=== PATIENT | male | born 1950 | race Caucasian/White ===

== ENCOUNTER 2018-03-05 13:00 | Outpatient (RCR) ==
--- NOTE | 2018-02-11 10:59 | RS.OPPTEV2 ---
Date of Note: 02/10/18 Visit #: 1 Date of Evaluation: 02/10/18 Payer Source: MEDICARE () Treatment Diagnosis: Ataxia History of Condition/Mechanism of Injury:: Patient reports progressive difficulty with balance and ambulation. Current Subjective/complaints:: Mr. Patiño states his balance has gotten progressivley gotten worse, more recently in the last year. States he has been using a cane for 30 years. He also has a rolling walker at home, but usually uses the cane. He reports occasional dizziness. States "yes" when asked if he has fallen in the past year, but does not give specifics. Paperwork from the [place] documents reports of daily falls. States legs are getting weak. He has stairs at the front entrance of his home and states he has some difficulty with them. States he goes without an assistive device at home, but usually has to hold onto furniture. States he uses oxygen at night. Medical History Medical History: Hypertension, COPD, Arthritis, Emphysema Medical History Comments:: PTSD, low back pain, chronic neuropathy Surgical History Comments:: Coronary angioplasty Smoking Status: Former smoker Hx Home Medications: albuterol,aspirin,diclofenac,Gabapentin,Meloxicam, mirtazapine,olodaterol,omeprazole,promethazine Patient's Goals: His goal is to improve his balance and decrease his falls. Pain Assessment - Pain Description Pain Location: back and neck Current Pain Intensity: 5/10 Worst Pain Intensity: 11/10 Functional Outcome Measure Tinetti: 54 (13/28=54% impairment (13 is High fall risk)) Other: 5 X sit to stand Test: patient performs in 14.97 seconds. Norms for his age bracket would be 11.4 secs. This shows him at risk for falls and decreased functional ability for his age. - G Codes & Severity Modifier G Codes & Modifier: Mobility current CK. Mobility goal CI Source of G Code score: Tinetti Assessment Observation - Observation Posture: Forward Head, Rounded Shoulders, Decreased Lumbar Lordosis Gait - Gait Pattern Gait Comments: Patient ambulates with a straight cane in the right hand. He demonstrates an ataxic gait, with moderate deviation from a straight path. Bilateral LE's demonstrate minimal foot clearance during swing phase. He reports dizziness when changing direction. Sit to stand transfers are independent. General Range of Motion: Bilateral LE AROM is WFL's. Muscle Strength: Left hip flexion 4+/5, ext, abduction, IR, and ER 4/5. Right hip flexion, abduction, ER, and IR 4/5, all else 4+/5. Left knee 4+/5. Right knee 4 to 4+/5. Left ankle 4/5, right ankle 4+/5. Trunk strength 3+/5. Sensation - Sensation Comments: Patient reports less sensitivity to light touch along the left lateral lower leg. Reports tingling in his feet, and barely detects light touch. Can distinguish deep pressure well along both feet. Can barely detect tap on sole of either foot. Balance - Sitting Balance Static Sitting Balance: Good Dynamic Sitting Balance: Good (-) - Standing Balance Static Standing Balance: Fair (-) Dynamic Standing Balance: Fair (-) - Comments Balance Assessment Comments: Patient on [employer] strainer cleaner for assessment. In static standing, patient demonstrates weight posteriorly displaced and more to his right LE. He is able to correct and center his weight with verbal and tactile cues. He had difficulty hitting anterior targets in Limits of Stability assessment. He requires verbal and tactile cues for this as well. Coordination - Tests Bilateral Heel to Vargas: Mild Deviation Toe Tapping: Mild Deviation Additional Comments: Additional Comments: Blood pressure assessed prior to activity: in sitting 113/ 64. Supine 135/42, then back to sitting 113/64. After immediate standing, blood pressure barely changed, but after 1 minute BP 89/55. Patient reported dizziness and lightheadedness. Patient given time to rest. Following activity, patient's BP 97/59 and pulse ox 89%. Patient shows no shortness of breath or labored breathing with activity. Interventions - Exercise/Activities/Manual Therapy Exercises/Activities: NA Manual Therapy: NA - Charges Timed Code Treatment Minutes: NA Total Treatment Time: NA Procedures billed for this date of service:: EVAL Medium EVALUATION COMPLEXITY LEVEL EVALUATION COMPLEXITY LEVEL: HISTORY: Medium (chronic neuropathy,HTN, PTSD, progressive weakness), EXAM OF BODY SYSTEMS: Medium, CLINICAL PRESENTATION: Medium, CLINICAL DECISION MAKING: Medium Assessment Assessment: Mr. Patiño presents to therapy with a diagnosis of ataxia, with frequent falls. He exhibits an ataxic gait and presents to be at a high risk for falls. He displays impaired static and dynamic standing balance, and mild coordination deficits. Also exhibits weakness in the trunk and LE's. He has had frequent falls and is at risk for continue falls without skilled therapy intervention to improve his strength, balance, and coordination. Patient Education: Education of diagnosis, Home Safety, Education of Plan of Care Rehab Potential: Good Short Term Goals Goal #1: Pt independent and compliant with HEP. Goal to be met by: 02/25/18 Goal #2: Trunk strength improved to 4/5. Goal to be met by: 02/25/18 Goal #3: Bilateral hip strength 4+/5. Goal to be met by: 02/25/18 Halfway Goals Goal #1: Pt knows HEP and to continue ex's to maintain functional level at D/C. Goal to be met by: 03/28/18 Goal #2: Score on Tinetti Assessment improved to 23/38 to shows less risk for falls. Goal to be met by: 03/28/18 Goal #3: Pt to amb. with AAD, independently with good safety, community distances. Goal to be met by: 03/28/18 Goal #4: Pt to report no falls. Goal to be met by: 03/28/18 Plan - Treatment to be Provided Procedures: Therapeutic Exercises, Therapeutic Activity, Gait Training, Neuromuscular Rehab, Patient Education Modalities: No Modalities - Treatment Plan Frequency: 2 X week Duration: 6 weeks ORDER # VISITS AND/OR THROUGH DATE: 03/28/18 - Treatment Code (1) Ataxia Code(s): R27.0 - ATAXIA, UNSPECIFIED Comments: R27.0 (2) Generalized muscle weakness Code(s): M62.81 - MUSCLE WEAKNESS (GENERALIZED) Comments: M62.81 (3) Recurrent falls Code(s): R29.6 - REPEATED FALLS Comments: R29.6 (4) Impaired functional mobility, balance, gait, and endurance Code(s): Z74.09 - OTHER REDUCED MOBILITY Comments: Z74.09
--- NOTE | 2018-02-11 11:26 | RS.OPPTDN ---
Subjective Date of Note: 02/11/18 Visit #: 2 Date of Evaluation: 02/10/18 Payer Source: MEDICARE () Treatment Diagnosis: Ataxia Current Subjective/complaints:: Reports having some dizziness this morning when he first go up. Interventions - Exercise/Activities/Manual Therapy Exercises/Activities: Prior to exercise, while sitting, BP 118/74. Patient performs on leg press with 75 #'s, 2 sets of 10 reps, then 60# for ankles. Performs seated LAQ's and hip flexion with 3#'s on each leg. In supine, performs SLR, circles with entire LE (with assistance), rhythmic stabilization, resisted hip adduction with red theraband, bridging, hooklying hip flexion with 3# weight, isometric hip abduction, and resistive ankle ROM into DF, inversion, and eversion with red theraband. Patient demonstrates more coordination on the right LE with exercises. Performs standing mini knee bends and lateral weight shifting on foam pad with chair close by for balance if needed. Following exercises, Bp 97/60. Total minutes of Exercise: 39 mins Manual Therapy: NA - Charges Timed Code Treatment Minutes: 39 mins Total Treatment Time: 45 mins Procedures billed for this date of service:: Ex 2, Neuro Assessment: Mr. Patiño is very pleasant and cooperative with all activities. Patient Education: Home Exercise Program, Home Safety, Activity Modification Short Term Goals Goal #1: Pt independent and compliant with HEP. Goal to be met by: 02/25/18 Goal #2: Trunk strength improved to 4/5. Goal to be met by: 02/25/18 Goal #3: Bilateral hip strength 4+/5. Goal to be met by: 02/25/18 Residential Goals Goal #1: Pt knows HEP and to continue ex's to maintain functional level at D/C. Goal to be met by: 03/28/18 Goal #2: Score on Tinetti Assessment improved to 23/38 to shows less risk for falls. Goal to be met by: 03/28/18 Goal #3: Pt to amb. with AAD, independently with good safety, community distances. Goal to be met by: 03/28/18 Goal #4: Pt to report no falls. Goal to be met by: 03/28/18 Plan PLAN OF CARE EXPIRES ON:: 03/28/18 ORDER # VISITS AND/OR THROUGH DATE: 03/28/18 PLAN: Progress balance and strengthening exercises.
--- NOTE | 2018-02-16 13:20 | RS.OPPTDN ---
Subjective Date of Note: 02/16/18 Visit #: 3 Date of Evaluation: 02/10/18 Payer Source: MEDICARE () Treatment Diagnosis: Ataxia Current Subjective/complaints:: Patient reports getting off balance when walking with distractions. Balance System Training - Level 1 Postural Stability/Symmetry #1 Training Mode: Weight Shift Training Vision: Eyes Open Task: None Platform Stability Level (1-12): static Stance: Normal Reps: 10 reps laterally, ant/post, and diagonally - Level 2 Dynamic Weight Shifting #1 Skill Level (1-3): 1 Platform Stability Level (1-12): static Reps: once Interventions - Exercise/Activities/Manual Therapy Exercises/Activities: After performing on leg press, while sitting, BP 135/77. Patient performs on leg press with 75 #'s, 2 sets of 10 reps, then 60# for ankles. Performs seated LAQ's and hip flexion with 3#'s on each leg. In supine , performs SLR, circles with entire LE (with assistance), rhythmic stabilization , resisted hip adduction with red theraband, bridging, hooklying hip flexion with 3# weight, isometric hip abduction, and resistive ankle ROM into DF, inversion, and eversion with red theraband. BP taken prior to standin/ 77. Immediate standin/68, then after another minute 130/13. . Performs standing mini knee bends and lateral weight shifting on foam pad with chair close by for balance if needed. Patient needed to sit due to being dizzy, BP 103/78. Total minutes of Exercise: 43 mins Manual Therapy: NA - Charges Timed Code Treatment Minutes: 43 mins Total Treatment Time: 49 mins Procedures billed for this date of service:: EX2, Neuro Assessment: Patient tolerates exercises well, other than dizziness with standing activities. He shows a significant drop in his BP of 22 points systolic upon immediate standing today. Educated patient to wait a little longer when standing, before he takes off walking. Patient Education: Education of diagnosis, Body/Joint mechanics, Home Safety, Education of Plan of Care Short Term Goals Goal #1: Pt independent and compliant with HEP. Goal to be met by: 02/25/18 Goal #2: Trunk strength improved to 4/5. Goal to be met by: 02/25/18 Goal #3: Bilateral hip strength 4+/5. Goal to be met by: 02/25/18 Alf Goals Goal #1: Pt knows HEP and to continue ex's to maintain functional level at D/C. Goal to be met by: 03/28/18 Goal #2: Score on Tinetti Assessment improved to 23/38 to shows less risk for falls. Goal to be met by: 03/28/18 Goal #3: Pt to amb. with AAD, independently with good safety, community distances. Goal to be met by: 03/28/18 Goal #4: Pt to report no falls. Goal to be met by: 03/28/18 Plan PLAN OF CARE EXPIRES ON:: 03/28/18 ORDER # VISITS AND/OR THROUGH DATE: 03/28/18 PLAN: Progress exercises as tolerated to gain increased strength and balance.
--- NOTE | 2018-02-19 11:55 | RS.OPPTDN ---
Subjective Date of Note: 02/19/18 Date of Evaluation: 02/10/18 Payer Source: MEDICARE () Treatment Diagnosis: Ataxia Current Subjective/complaints:: Mr. Patiño states he feels Ok today. States he "over did it" yesterday. Balance System Training - Level 1 Postural Stability/Symmetry #1 Training Mode: Postural Stability Training Vision: Eyes Open Platform Stability Level (1-12): static Stance: Normal Reps: anteriorly to hit targets X 4 reps - Level 2 Dynamic Weight Shifting #1 Training Mode: Weight Shift Skill Level (1-3): 1 Platform Stability Level (1-12): static Reps: 10 reps each laterally and ant/posterior Interventions - Exercise/Activities/Manual Therapy Exercises/Activities: BP 118/64. Patient performs on leg press with 75 #'s, 2 sets of 10 reps, then 60# for ankles. Performs seated LAQ's and hip flexion with 3#'s on each leg. In supine, performs SLR, circles with entire LE (with assistance), rhythmic stabilization, resisted hip adduction with red theraband, bridging, hooklying hip flexion with 3# weight, isometric hip abduction, and resistive ankle ROM into DF, inversion, and eversion with red theraband. BP taken prior to standin/59. Immediate standin/54, after one minute 85 /52. Patient instructed to sit down to rest. BP came up to 109/61. Total minutes of Exercise: 41 Manual Therapy: NA - Objective Findings Observations,measurements,etc.: Patient ambulates into the department with a straight cane. He demonstrates an ataxic gait. - Charges Timed Code Treatment Minutes: 41 mins Total Treatment Time: 48 mins Procedures billed for this date of service:: EX2, neuro Assessment: Mr. Patiño demonstrates consistent BP drop with immediate standing or after standing one minute. Discussed with him the affect this has on his feeling of dizziness, being light headed, or off balance. He demonstrates the need for strengthening to improve his balance reactions to help him avoid falls. Patient Education: Education of diagnosis, Body/Joint mechanics, Home Exercise Program, Home Safety, Activity Modification, Education of Plan of Care Short Term Goals Goal #1: Pt independent and compliant with HEP. Goal to be met by: 02/25/18 Progress towards Goal:: Progressing Goal #2: Trunk strength improved to 4/5. Goal to be met by: 02/25/18 Progress towards Goal:: Progressing Goal #3: Bilateral hip strength 4+/5. Goal to be met by: 02/25/18 Progress towards Goal:: Progressing Long-Term Goals Goal #1: Pt knows HEP and to continue ex's to maintain functional level at D/C. Goal to be met by: 03/28/18 Goal #2: Score on Tinetti Assessment improved to 23/38 to shows less risk for falls. Goal to be met by: 03/28/18 Goal #3: Pt to amb. with AAD, independently with good safety, community distances. Goal to be met by: 03/28/18 Goal #4: Pt to report no falls. Goal to be met by: 03/28/18 Plan PLAN OF CARE EXPIRES ON:: 03/28/18 ORDER # VISITS AND/OR THROUGH DATE: 03/28/18 PLAN: Progress strengthening and balance exercise to reduce his risk for falls.
--- NOTE | 2018-02-23 13:28 | RS.OPPTDN ---
Subjective Date of Note: 02/23/18 Visit #: 5 Date of Evaluation: 02/10/18 Payer Source: MEDICARE () Treatment Diagnosis: Ataxia Current Subjective/complaints:: Mr. Patiño states he has had a lot of dizziness this morning. Reports dizziness and lightheadedness today in department while sitting and standing. States he has not fallen lately, just is unsteady on his feet and runs into elise and other objects. Interventions - Exercise/Activities/Manual Therapy Exercises/Activities: BP taken in sitting, after patient walked back into department: 95/52. Taken again after a few minutes: 105/59. Patient performed LE strengthening while sitting of LAQ's and hip flexion with 4#'s on each leg. BP following these exercises while still sittin/56. Patient assisted with exercises in supine: performed SAQ's and alternating hip flexion in hooklying with 4# weights, resisted hip abduction and adduction with red theraband, isometric rhythmic stabilization, bridging, 3# wand for bilateral shoulder flexion. After sitting up, BP 88/48 and O2 sat. 87%. Patient given time to rest and vitals taken again after approixmately 5 minutes: BP 91/54 and O2 94%. No standing/walking exercises performed due to BP being low and Mr. Patiño reportiing dizziness. Blood pressure last measured 105/59 before Mr. Patiño left the department. Reinforced the need for him to take his time and not change positions quickly. Total minutes of Exercise: 32 mins Manual Therapy: NA - Objective Findings Observations,measurements,etc.: Trunk strength 4/5. - Charges Timed Code Treatment Minutes: 32 mins Total Treatment Time: 50 mins Procedures billed for this date of service:: EX2 Assessment: Mr. Patiño presents today with reports of dizziness this morning and low blood pressure. He has consistently shown Orthostatic Hypotension in the department and today maintains low blood pressure in sitting. No standing activities were pursued today for patient safety. Patient Education: Education of diagnosis, Home Safety, Activity Modification Short Term Goals Goal #1: Pt independent and compliant with HEP. Goal to be met by: 02/25/18 Progress towards Goal:: Progressing Goal #2: Trunk strength improved to 4/5. Goal to be met by: 02/25/18 Progress towards Goal:: Met Goal #3: Bilateral hip strength 4+/5. Goal to be met by: 02/25/18 Progress towards Goal:: Progressing [facility] Goals Goal #1: Pt knows HEP and to continue ex's to maintain functional level at D/C. Goal to be met by: 03/28/18 Goal #2: Score on Tinetti Assessment improved to 23/38 to shows less risk for falls. Goal to be met by: 03/28/18 Goal #3: Pt to amb. with AAD, independently with good safety, community distances. Goal to be met by: 03/28/18 Goal #4: Pt to report no falls. Goal to be met by: 03/28/18 Plan PLAN OF CARE EXPIRES ON:: 03/28/18 ORDER # VISITS AND/OR THROUGH DATE: 03/28/18 PLAN: Plan to contact Dr. Cerrato's office regarding Mr. Patiño's low blood pressure.
--- NOTE | 2018-02-26 14:00 | RS.OPPTDN ---
Subjective Date of Note: 02/26/18 Visit #: 6 Date of Evaluation: 02/10/18 Payer Source: MEDICARE () Treatment Diagnosis: Ataxia Current Subjective/complaints:: Mr. Patiño states he had a bad fall yesterday. States he stood up and fell straight back. States it was the worst fall he has had in a while. States he was ok after the fall and feels OK today. Reports he did not take his medications this morning, due to having a lot going on. Mr. Patiño states [facility]reg[facility] my phone call to them about his blood pressure. He goes for a doctor's appointment on Friday the . Reports dizziness with activities today, especially when standing or walking. Balance System Training - Level 1 Postural Stability/Symmetry #1 Training Mode: Weight Shift Training Vision: Eyes Open Task: None Platform Stability Level (1-12): static Stance: Normal - Level 2 Dynamic Weight Shifting #1 Training Mode: Limits of Stability Skill Level (1-3): 1 Platform Stability Level (1-12): static Time: 1 min, 43 seconds Reps: once Interventions - Exercise/Activities/Manual Therapy Exercises/Activities: Patient walked back to the department on worked on leg press with 60#s . BP following this was 140/76. Patient performed LE strengthening while sitting of LAQ's and hip flexion with 4#'s on each leg. Performed resisted ankle DF, inversion, and eversion with green theraband. BP following these exercises while still sittin/83. Upon standing, BP drops to 112/68. Patient performed standing exercises on foam pad of lateral weight shifting and mini squats. Pt sat to rest and BP 153/84. After resting ~ 5 mins BP 142/83. Upon standing again, BP 127/82. Patient reported dizziness throughout session. Manual Therapy: NA HOME EXERCISE PROGRAM: sitting hip flexion and LAQ's. - Objective Findings Observations,measurements,etc.: Mr. Patiño ambulates with a Handy cane (folds out with seat) independently with an ataxic gait. Deviates moderately from a straight path. Bilateral LE demonstrates decreased hip and knee flexion. - Charges Timed Code Treatment Minutes: 41 mins Total Treatment Time: 51 mins Procedures billed for this date of service:: Ex2, Neuro Assessment: Patient's blood pressure higher today than previous visits due to him not taking his medication this morning. BP consistently drops 20 points or more upon standing. Continues to demonstrate ataxic gait. Patient Education: Education of diagnosis, Body/Joint mechanics Short Term Goals Goal #1: Pt independent and compliant with HEP. Goal to be met by: 02/25/18 Progress towards Goal:: Progressing Goal #2: Trunk strength improved to 4/5. Goal to be met by: 02/25/18 Progress towards Goal:: Met Goal #3: Bilateral hip strength 4+/5. Goal to be met by: 02/25/18 Progress towards Goal:: Progressing [employer] Goals Goal #1: Pt knows HEP and to continue ex's to maintain functional level at D/C. Goal to be met by: 03/28/18 Goal #2: Score on Tinetti Assessment improved to 23/38 to shows less risk for falls. Goal to be met by: 03/28/18 Goal #3: Pt to amb. with AAD, independently with good safety, community distances. Goal to be met by: 03/28/18 Goal #4: Pt to report no falls. Goal to be met by: 03/28/18 Plan PLAN OF CARE EXPIRES ON:: 03/28/18 ORDER # VISITS AND/OR THROUGH DATE: 03/28/18 PLAN: Progress strenghtening and balance exercises.
--- NOTE | 2018-03-02 14:26 | RS.OPPTDN ---
Subjective Date of Note: 03/02/18 Visit #: 7 Date of Evaluation: 02/10/18 Payer Source: MEDICARE () Treatment Diagnosis: Ataxia Current Subjective/complaints:: pt states he suffered another fall this past weekend with bruising to R mid thoracic area as well as abrasion. pt states he was working and just fell backwards landing on the shop vac. *Precautions: pt with orthostatic hypotension, fall risk Pain Assessment - Pain Description Pain Location: B shlds Pain Description: Aching Other Comments regarding Pain:: pt reports aching in B shlds Interventions - Exercise/Activities/Manual Therapy Exercises/Activities: pt amb to dept from waiting room with cane with increased lat sway and 3 episodes of loss of balance of which pt recovered from independently. pt performed leg press 60# 3 setsp of 10 reps, BLE LAQ, hip flex 4# 2 sets of 10, resisted DF, inversion, eversion, PF with green tband x 10, hip abd, hip add with green tband 2 sets of 10 reps, bridging x 10 reps, pt performed lat weight shift with CGA. BP initially 130/62, supine 128/65, sit 86/ 57, stand 90/48. pt very unsteady with initial standing. Total minutes of Exercise: 42 Manual Therapy: NA HOME EXERCISE PROGRAM: sitting hip flexion and LAQ's. - Charges Timed Code Treatment Minutes: 42 Total Treatment Time: 49 Procedures billed for this date of service:: ex 3 Assessment: pt continues with orthostatic hypotension with position changes. pt with decreased gait safety, balance. pt is high fall risk. Patient Education: Home Exercise Program, Education of Plan of Care Patient demonstrates compliance with HEP?: Yes Short Term Goals Goal #1: Pt independent and compliant with HEP. Goal to be met by: 02/25/18 Progress towards Goal:: Progressing Goal #2: Trunk strength improved to 4/5. Goal to be met by: 02/25/18 Progress towards Goal:: Met Goal #3: Bilateral hip strength 4+/5. Goal to be met by: 02/25/18 Progress towards Goal:: Progressing [facility] Goals Goal #1: Pt knows HEP and to continue ex's to maintain functional level at D/C. Goal to be met by: 03/28/18 Goal #2: Score on Tinetti Assessment improved to 23/38 to shows less risk for falls. Goal to be met by: 03/28/18 Goal #3: Pt to amb. with AAD, independently with good safety, community distances. Goal to be met by: 03/28/18 Goal #4: Pt to report no falls. Goal to be met by: 03/28/18 Plan PLAN OF CARE EXPIRES ON:: 03/28/18 ORDER # VISITS AND/OR THROUGH DATE: 03/28/18 PLAN: continue to progress with gait training as well as therex for strengthening, balance.
--- NOTE | 2018-03-05 14:02 | RS.OPPTDN ---
Subjective Date of Note: 03/05/18 Visit #: 8 Date of Evaluation: 02/10/18 Payer Source: MEDICARE ([place]) Treatment Diagnosis: Ataxia Current Subjective/complaints:: Mr. Patiño states he fell in the mud this morning. States he tripped over an extension cord. Reports dizziness in the department. States he forgot to takes his medication this morning. He goes for his doctor's appointment tomorrow. *Precautions: pt with orthostatic hypotension, fall risk Balance System Training - Level 1 Postural Stability/Symmetry #1 Training Mode: Weight Shift Training Vision: Eyes Open Task: None Platform Stability Level (1-12): static Stance: Normal Reps: 10 reps into lateral, diagonal, and anter/posterior Interventions - Exercise/Activities/Manual Therapy Exercises/Activities: Pt ambulated into department with SBA with cane. He demonstrates significantly ataxic gait, with wide base of support. He performed on the leg press w/ 60# 3 sets of 10. BP 106/82. Performed sitting exercises with 4.5# weights on ankles: LAQ's and hip flexion 2 sets of 10 reps each. Performed resisted ankle ROM into DF, Inversion, and eversion with green theraband, 2 sets of 10 reps. Peformed on BAPs board with 2.5 pounds on each side for all directions X 10 reps each. BP prior to standing 106/62. Immediate standing BP 94/58. Manual Therapy: NA HOME EXERCISE PROGRAM: sitting hip flexion and LAQ's. - Objective Findings Observations,measurements,etc.: Pt ambulates with a straight cane. He demonstrates ataxic gait with very wide base of support. Upon leaving the department, he demonstrated scissor steps with LOB. Accompanied Mr. Patiño out from the department for safety. - Charges Timed Code Treatment Minutes: 42 mins Total Treatment Time: 50 mins Procedures billed for this date of service:: EX2, Neuro Assessment: Patient with continued ataxia and orthostatic hypotension. He is receptive to new challenges and activities in the department to help improve his balance. Patient Education: Education of diagnosis, Activity Modification, Education of Plan of Care Short Term Goals Goal #1: Pt independent and compliant with HEP. Goal to be met by: 02/25/18 Progress towards Goal:: Progressing Goal #2: Trunk strength improved to 4/5. Goal to be met by: 02/25/18 Progress towards Goal:: Met Goal #3: Bilateral hip strength 4+/5. Goal to be met by: 02/25/18 Progress towards Goal:: Progressing Assisted Goals Goal #1: Pt knows HEP and to continue ex's to maintain functional level at D/C. Goal to be met by: 03/28/18 Goal #2: Score on Tinetti Assessment improved to 23/38 to shows less risk for falls. Goal to be met by: 03/28/18 Goal #3: Pt to amb. with AAD, independently with good safety, community distances. Goal to be met by: 03/28/18 Goal #4: Pt to report no falls. Goal to be met by: 03/28/18 Plan PLAN OF CARE EXPIRES ON:: 03/28/18 ORDER # VISITS AND/OR THROUGH DATE: 03/28/18 PLAN: Progress balance and proprioception exercises to reduce his risk for falls.
== END 2018-03-08 23:59 ==
DX: R27.0 Ataxia, unspecified (principal); M62.81 Muscle weakness (generalized); R29.6 Repeated falls; Z74.09 Other reduced mobility

== ENCOUNTER 2018-03-20 10:00 | Outpatient (RCR) ==
--- NOTE | 2018-03-09 14:17 | RS.OPPTDN ---
Subjective Date of Note: 03/09/18 Visit #: 9 Date of Evaluation: 02/10/18 Payer Source: MEDICARE () Treatment Diagnosis: Ataxia Current Subjective/complaints:: Mr. Patiño states he did not get to see his doctor this past Friday because the office had to reschedule his appointment. It is now March 24. States he took all of his medication this morning, except for his extended release Nitro[employer] med. States he had no falls over the weekend, just stumbled a lot. Reports lightheadedness while standing or walking in the department. *Precautions: pt with orthostatic hypotension, fall risk Balance System Training - Level 1 Postural Stability/Symmetry #1 Training Mode: Weight Shift Training Vision: Eyes Open Task: None Stance: Normal Reps: 10 reps into lateral, diagonal, and anter/posterior - Level 2 Dynamic Weight Shifting #1 Training Mode: Random Control Skill Level (1-3): 1 Platform Stability Level (1-12): static Time: 40 seconds Interventions - Exercise/Activities/Manual Therapy Exercises/Activities: Pt ambulated into department with SBA with cane. He demonstrates slightly less ataxic gait today, with wide base of support. He performed on the leg press w/ 75# 3 sets of 10. BP 158/74. Performed sitting exercises with 5# weights on ankles: LAQ's and hip flexion 2 sets of 10 reps each. Performed resisted ankle ROM into DF, Inversion, and eversion with green theraband, 2 sets of 10 reps. In supine, performed SLR circles, isometric trunk rotation, bridging, SAQ's with 5#s, and alternate arm/leg bug. BP in supine 136/75. Upon immediate sitting BP 109/65. After 5 mins of sitting, BP 154/84. Upon standing, BP 129/82. Performed balance exercises on [employer] Balance senior animal trainer and then took blood pressure while still standing, 103/59. Manual Therapy: NA HOME EXERCISE PROGRAM: sitting hip flexion and LAQ's. - Charges Timed Code Treatment Minutes: 38 mins Total Treatment Time: 42 mins Procedures billed for this date of service:: EX2,neuro Assessment: Continued consistent drop of over 20 points systolic with standing. He tolerates greater challenges with resistance and on balance senior animal trainer. He continues to demonstrates ataxia with all ambulation and presents to be a high fall risk. Patient Education: Education of diagnosis, Home Exercise Program, Home Safety Patient demonstrates compliance with HEP?: Yes (performs supine exercises as instructed) Short Term Goals Goal #1: Pt independent and compliant with HEP. Goal to be met by: 02/25/18 Progress towards Goal:: Progressing Goal #2: Trunk strength improved to 4/5. Goal to be met by: 02/25/18 Progress towards Goal:: Met Goal #3: Bilateral hip strength 4+/5. Goal to be met by: 02/25/18 Progress towards Goal:: Progressing Senior Care Goals Goal #1: Pt knows HEP and to continue ex's to maintain functional level at D/C. Goal to be met by: 03/28/18 Goal #2: Score on Tinetti Assessment improved to 23/38 to shows less risk for falls. Goal to be met by: 03/28/18 Goal #3: Pt to amb. with AAD, independently with good safety, community distances. Goal to be met by: 03/28/18 Goal #4: Pt to report no falls. Goal to be met by: 03/28/18 Progress towards goal: Progressing (Reports no falls over the weekend. Stumbles a lot.) Plan PLAN OF CARE EXPIRES ON:: 03/28/18 ORDER # VISITS AND/OR THROUGH DATE: 03/28/18 PLAN: Continue to progress strengthening, balance, and proprioception ex's to reduce Mr. Patiño's risk for falls.
--- NOTE | 2018-03-13 16:28 | RS.PTSUM ---
Progress Note/Summary Date of Note: 03/12/18 Date of Evaluation: 02/10/18 Number of Visits: 10 Reporting Period for this Progress Note: 02/10/18 through 06/12/17 Current Complaints/Gains: Mr. Patiño reports daily dizziness. States he will have a test for his inner ear next week. Objective Measurements/Presentation: Initial blood pressure 85/56. After 5 mins , BP 101/65. Performed resisted HS flexion in sitting with green theraband. Performed dynamic balance activities with 2.5 # weight on each ankle: tandum walking, side stepping, and backward walking. Mr. Patiño needs moderate assistance to maintain his balance with all activities. BP in sitting 110/66. Performed on [employer] Butt Maker for static balance: weight shifting laterally and anterior/posteriorly. Performed Limits of stability training. G Codes: Mobility current CK. Mobility goal CI Source of G Code Score: Tinetti assessment, improved by one point, in the area of sitting down. - Short Term Goals Goal #1: Pt independent and compliant with HEP. Goal to be met by: 02/25/18 Progress towards Goal:: Progressing Goal #2: Trunk strength improved to 4/5. Goal to be met by: 02/25/18 Progress towards Goal:: Met Goal #3: Bilateral hip strength 4+/5. Goal to be met by: 02/25/18 Progress towards Goal:: Progressing - Carving Machine Operator Goals Goal #1: Pt knows HEP and to continue ex's to maintain functional level at D/C. Goal to be met by: 03/28/18 Progress towards goal: Progressing Goal #2: Score on Tinetti Assessment improved to 23/38 to shows less risk for falls. Goal to be met by: 03/28/18 Progress towards goal: Progressing Goal #3: Pt to amb. with AAD, independently with good safety, community distances. Goal to be met by: 03/28/18 Progress towards goal: Progressing Goal #4: Pt to report no falls. Goal to be met by: 03/28/18 Progress towards goal: Progressing (Reports no falls over the weekend. Stumbles a lot.) - Assessment Assessment of Improvement/Progress: Patient shows improvement by one point on Tinetti Assessment. He continues to have an ataxic gait and show a significant drop in blood pressure with position change from sit to stand. He may benefit from last two treatment sessions to focus on safety and reinforce use of assistive device. Summary: Patient has made progress towards goals., Maximum potential has yet to be attained. - Plan Plan: Continue Plan of Care PLAN OF CARE EXPIRES ON:: 03/28/18 ORDER # VISITS AND/OR THROUGH DATE: 03/28/18
--- NOTE | 2018-03-17 11:10 | RS.OPPTDN ---
Subjective Date of Note: 03/17/18 Visit #: 11 Date of Evaluation: 02/10/18 Payer Source: MEDICARE ([place]) Treatment Diagnosis: Ataxia Current Subjective/complaints:: Mr. Patiño states he was dizzy when he first go up today. Reports dizziness while standing in the department. *Precautions: pt with orthostatic hypotension, fall risk Balance System Training - Level 1 Postural Stability/Symmetry #1 Training Mode: Weight Shift Training Vision: Eyes Open Task: None Platform Stability Level (1-12): static Stance: Normal Reps: 10 reps into lateral, diagonal, and anter/posterior - Level 2 Dynamic Weight Shifting #1 Training Mode: Limits of Stability Skill Level (1-3): 1 Platform Stability Level (1-12): static Reps: once Interventions - Exercise/Activities/Manual Therapy Exercises/Activities: Pt demonstrates ataxic gait with wide base of support with use of straight cane. He performed on the leg press w/ 75# 3 sets of 10. BP 109/78. Performed sitting exercises with 5# weights on ankles: LAQ's and hip flexion 2 sets of 10 reps each. Performed resisted ankle ROM into DF, Inversion, and eversion with blue theraband, 2 sets of 10 reps. In supine, performed SLR circles, isometric trunk rotation, bridging, SAQ's with 5#s, and alternate arm/leg bug. BP in supine 136/78. Upon immediate sitting BP 105/ 68. After 5 mins of sitting, BP 109/72. Immediate Standing BP 99/64, after 5 mins 103/64. Patient performed single leg standing on green theraband foam pad with CGA-min A and chair in front of him. Demonstrates more difficulty on the left LE. Rested then performed tandum walking, side stepping, and backward walking with min assist of one. Patient demonstrates loss of balance 2-3 times in department. Emphasized the need for him to take his time when changing positions. Also discussed use of rolling walker for more safety with ambulation. Manual Therapy: NA HOME EXERCISE PROGRAM: sitting hip flexion and LAQ's. - Charges Timed Code Treatment Minutes: 44 mins Total Treatment Time: 56 mins Procedures billed for this date of service:: Neuro 2, EX Assessment: Mr. Patiño continues to demonstrate ataxic gait and orthostatic hypotension with position change. He is receptive to greater balance challenges. He has one more visit this week to complete his plan of care. Patient Education: Education of diagnosis, Home Safety, Activity Modification, Education of Plan of Care Patient demonstrates compliance with HEP?: Yes Short Term Goals Goal #1: Pt independent and compliant with HEP. Goal to be met by: 02/25/18 Progress towards Goal:: Progressing Goal #2: Trunk strength improved to 4/5. Goal to be met by: 02/25/18 Progress towards Goal:: Met Goal #3: Bilateral hip strength 4+/5. Goal to be met by: 02/25/18 Progress towards Goal:: Progressing Frit Mixer Goals Goal #1: Pt knows HEP and to continue ex's to maintain functional level at D/C. Goal to be met by: 03/28/18 Progress towards goal: Progressing Goal #2: Score on Tinetti Assessment improved to 23/38 to shows less risk for falls. Goal to be met by: 03/28/18 Progress towards goal: Progressing Goal #3: Pt to amb. with AAD, independently with good safety, community distances. Goal to be met by: 03/28/18 Progress towards goal: Progressing Goal #4: Pt to report no falls. Goal to be met by: 03/28/18 Progress towards goal: Progressing Plan PLAN OF CARE EXPIRES ON:: 03/28/18 ORDER # VISITS AND/OR THROUGH DATE: 03/28/18 PLAN: See for one last visit this week.
--- NOTE | 2018-03-20 11:40 | RS.OPPTDC ---
Date of Discharge: 03/20/18 Date of Evaluation: 02/10/18 Number of Visits: 12 Treatment Diagnosis: Ataxia Current Complaints/Gains: Mr. Patiño reports his inner ear test was cancelled and has not been rescheduled. States he has taken his medication today. Reports no falls this weekend, but states he continues to stumble a lot. States he is going to give his cane to someone who needs it. States he is trying to go without it. Functional Outcome Measure Tinetti: 16 (=43% improvement) Other: 5X sit to stand Test: today 14.65 seconds Gait Speed today is .87 m/s. - G Codes & Severity Modifier G Codes & Modifier: Mobility D/C CK. Mobility Goal CI Source of G Code score: Tinetti Assessment Gait - Gait Pattern Gait Comments: Mr. Patiño has continued to ambulate with an ataxic gait. He demonstrates a wide base of support and frequent loss of balance. At times he even, scissors steps to maintain his balance. Interventions - Exercise/Activities/Manual Therapy Exercises/Activities: Performed on the leg press w/ 75# 3 sets of 10. BP 170/ 76 in sitting. After a few minutes, BP 125/62. Performed sitting exercises with 5# weights on ankles: LAQ's and hip flexion 2 sets of 10 reps each. Performed resisted ankle ROM into DF, Inversion, and eversion with blue theraband, 2 sets of 10 reps. Upon immediate standing BP 123/66. After 1 min of standing, BP 121/53. Rested then performed tandum walking, side stepping, and backward walking with min assist of one. Patient demonstrates loss of balance 2-3 times in department. Instructed in HEP to continue: standing hip abduction, mini knee bends, heel/toe raises, and seated hip flexion. Advised him to hold onto something that will not move, such as kitchen counter when performing standing exercises. Also discussed his safety, and reiterated that he needs to use his cane and/or walker for safety. On Balance [place], he continues to maintain more of his weight on his heels and more onto the right LE with static standing. Demonstrates difficulty transfering his weight onto his toes to hit anterior targets in Limits of Stability. Again, discussed the need for him to take his time changing positions. Total minutes of Exercise: X 49 mins Manual Therapy: NA HOME EXERCISE PROGRAM: sitting hip flexion and LAQ's, standing hip abd/adduction , mini knee bends, and heel/toe raises. - Objective Findings Observations,measurements,etc.: Coordination with toe tap and heel to chin presents to be normal bilaterally today. Muscle strength of right hip 4 to 4+/ 5.right knee 4+/5, ankle 4+/5. Left hip 5/5, knee 4+/5, ankle 5/5. - Charges Timed Code Treatment Minutes: 49 mins Total Treatment Time: 53 mins Procedures billed for this date of service:: ADL, EX 2, Neuro Assessment Assessment: Mr. Patiño continues to demonstrate an ataxic gait. His LE strength and coordination have improved. His score on Tinetti Assessment has improved by 3 points to 16/28, which is still a High fall risk. His blood pressure has been monitored at each session, and he has consistently demonstrated Orthostatic Hypotension in the department, except for today. Blood pressure today was the highest its been in the 12 visits he has attended. No further skilled therapy recommended at this time. Short Term Goals Goal #1: Pt independent and compliant with HEP. Goal to be met by: 02/25/18 Progress towards Goal:: Met Goal #2: Trunk strength improved to 4/5. Goal to be met by: 02/25/18 Progress towards Goal:: Met Goal #3: Bilateral hip strength 4+/5. Goal to be met by: 02/25/18 Progress towards Goal:: Partially Met Comments:: right hip strength 4 to 4+/5. Snf Goals Goal #1: Pt knows HEP and to continue ex's to maintain functional level at D/C. Goal to be met by: 03/28/18 Progress towards goal: Met Goal #2: Score on Tinetti Assessment improved to 23/38 to shows less risk for falls. Goal to be met by: 03/28/18 Progress towards goal: Not Met Goal #3: Pt to amb. with AAD, independently with good safety, community distances. Goal to be met by: 03/28/18 Progress towards goal: Not Met Comments: Pt ambulates with st. cane, independently, but safety not good. Goal #4: Pt to report no falls. Goal to be met by: 03/28/18 Progress towards goal: Partially Met Comments: No falls in the last several days. Still High Fall Risk Plan Reason for Discharge:: No Further Skilled Therapy Indicated
== END 2018-04-08 23:59 ==
DX: R27.0 Ataxia, unspecified (principal); M62.81 Muscle weakness (generalized); R29.6 Repeated falls; Z74.09 Other reduced mobility